=== PATIENT | female | born 1965 | race Caucasian/White ===

== ENCOUNTER 2021-06-03 09:12 | Emergency (ER) | payer MEDICAID ==
[~2021-06-03] VITALS: Ht 160 cm; Wt 89.8 kg
[2021-06-03 09:18] VITALS: BP 114/71
--- NOTE | 2021-06-03 09:23 | NUR ---
PATIENT AMBULATED TO BED 7
--- NOTE | 2021-06-03 09:30 | NUR ---
56/F C/O PAIN ON LEFT 4TH, 5TH FINGER S/P HITTING A SHOPPING CART X 1 WEEK. PER PT, PAIN PROVOKED BYMOVEMENT AND TOUCH. PT STATES SOME NUMBNESS AND TINGLING SENSATION WELL. SWELLING NOTED UPON ASSESSMENT. PMH: DENIES ALLERGY: PCN
--- NOTE | 2021-06-03 09:34 | NUR ---
RADIOLOGY AT BEDSIDE
--- NOTE | 2021-06-03 09:34 | NUR ---
alarm technician at bedside.
--- NOTE | 2021-06-03 09:45 | NUR ---
DR. MANRIQUE AT BEDSIDE EXAMINING PATIENT
[2021-06-03] MEDS ORDERED: KETOROLAC 30 MG/ML VIAL IM ONE (10:15)
[2021-06-03] MEDS ORDERED: ACET-8386 PO (10:21)
[2021-06-03] MEDS ORDERED: NAPR-54 PO (10:21)
--- NOTE | 2021-06-03 10:22 | NUR ---
APPLIED FINGER SPLINT TO LEFT 4-5 DIGITS WITHOUT ANY ISSUES
--- NOTE | 2021-06-03 10:30 | NUR ---
Patient discharged with v/s stable. Written and verbal after care instructions given and explained. Patient alert, oriented and verbalized understanding of instructions. Ambulatory with steady gait. All questions addressed prior to discharge. ID band removed. Patient advised to follow up with PMD. Rx of NAPROSYN AND NORCO given. Patient educated on indication of medication including possible reaction and side effects. Opportunity to ask questions provided and answered.
[2021-06-03 10:31] VITALS: BP 114/71
== END 2021-06-03 10:30 | disposition home or self-care (01) ==
LOC: MED 09:12
DX: S63.615A Unspecified sprain of left ring finger, initial encounter (principal); S63.617A Unspecified sprain of left little finger, initial encounter; Z88.0 Allergy status to penicillin; Z90.49 Acquired absence of other specified parts of digestive tract; W22.8XXA Striking against or struck by other objects, initial encounter; Y93.89 Activity, other specified; Y92.89 Other specified places as the place of occurrence of the external cause; Y99.8 Other external cause status
CPT/HCPCS: 29130; 73140; 96372; 99283; J1885

== ENCOUNTER 2022-07-11 18:19 | Emergency (ER) | payer MEDICAID, OTHER ==
[~2022-07-11] VITALS: Ht 160 cm; Wt 94.3 kg
[~2022-07-11 18:19] MED LIST: ACET-8386 PO; NAPR-54 PO
[2022-07-11 18:45] VITALS: BP 121/71
--- NOTE | 2022-07-11 20:12 | NUR ---
PT TAKEN TO BED 4
--- NOTE | 2022-07-11 21:03 | NUR ---
57 Y/O F C/O LEFT KNEE PAIN, STATES SHE HAD A FALL 2 MONTHS AGO AND HAS CONSTANT PAIN SINCE BUT REPORTS PAIN WORSE THIS MORNING AFTER SHE TRIPED AND FALL AROUND 10 AM THIS MORNING. DENIES NEW INJURY OR TRAUMA, TOOK 800MG MOTRIN TODAY WITH NO RELIEF. PMH: DENIES ALLERGIES: PENICILLINS
--- NOTE | 2022-07-11 22:32 | NUR ---
Dr. Gomez examining patient.
--- NOTE | 2022-07-11 22:33 | NUR ---
DR NUGENT AT BEDSIDE.
[2022-07-11] MEDS ORDERED: IBUP-2218 PO (23:17)
--- NOTE | 2022-07-11 23:26 | NUR ---
PER ERMD INSTRUCTIONS PTS LEFT KNEE WAS WRAPPED WITH AN JOHANNY BANDAGE, PT TOLERATE PROCEDURE, +CMS BEFORE AND AFTER PROCEDURE
[2022-07-11 23:51] VITALS: BP 106/56
--- NOTE | 2022-07-11 23:52 | NUR ---
Patient discharged with v/s stable. Written and verbal after care instructions given and explained. Patient alert, oriented and verbalized understanding of instructions. Wheel Chair Assisted with to car. All questions addressed prior to discharge. ID band removed. Patient advised to follow up with PMD. Rx of IBUPROFEN given. Opportunity to ask questions provided and answered.
--- NOTE | 2022-07-11 23:53 | NUR ---
The patient's care was reviewed and supervised by Lisbeth Saldivar RN.
== END 2022-07-11 23:52 | disposition home or self-care (01) ==
LOC: MED 18:19
DX: M25.562 Pain in left knee (principal); Z88.0 Allergy status to penicillin
CPT/HCPCS: 73562; 99283